=== PATIENT | female | born 1980 | race Caucasian/White ===

== ENCOUNTER → 2016-08-24 | Outpatient (CLI) | payer MEDICAID ==
[2016-01-25 11:53] VITALS: BP 168/90
[2016-08-24 17:46] LABS: BASOPHILS # (AUTO) 0.1 X10^3/uL (0.0-0.1); BASOPHILS % (AUTO) 1.1 % (0.2-1.0); EOSINOPHILS # (AUTO) 0.4 x10^3/uL (0.0-0.2); EOSINOPHILS % (AUTO) 5.5 % (0.9-2.9); HEMATOCRIT 41.8 % (36.0-47.0); HEMOGLOBIN 14.7 g/dL (12.0-16.0); LYMPHOCYTES # (AUTO) 2.5 X10^3/uL (1.3-2.9); LYMPHOCYTES % (AUTO) 38.4 % (21.0-51.0); MEAN CORPUSCULAR HEMOGLOBIN 31.1 pg (27.0-34.0); MEAN CORPUSCULAR HGB CONC 35.1 g/dL (33.0-35.0); MEAN CORPUSCULAR VOLUME 88.7 fL (80.0-100.0); MEAN PLATELET VOLUME 8.6 fL (7.4-11.0); MONOCYTES # (AUTO) 0.4 x10^3/uL (0.3-0.8); MONOCYTES % (AUTO) 6.1 % (0.0-13.0); NEUTROPHILS # (AUTO) 3.2 x10^3/uL (2.2-4.8); NEUTROPHILS % (AUTO) 48.9 % (42.0-75.0); PLATELET COUNT 209 X10^3/uL (150.0-450.0); RED BLOOD COUNT 4.72 X10^6/uL (3.5-5.4); RED CELL DISTRIBUTION WIDTH 12.4 % (11.6-16.5); WHITE BLOOD COUNT 6.5 X10^3/uL (3.6-10.0)
[2016-08-24 17:47] LABS: BILIRUBIN,URINE NEGATIVE (NEGATIVE); BLOOD/HEMOGLOBIN,URINE 1+ (NEGATIVE); GLUCOSE, URINE 1+ (NEGATIVE); KETONES,URINE 1+ (NEGATIVE); LEUKOCYTE ESTERASE ,URINE 1+ (NEGATIVE); NITRITES,URINE NEGATIVE (NEGATIVE); PROTEIN,URINE 2+ (NEGATIVE); UROBILINOGEN,URINE 1+ (NORMAL)
[2016-08-24 18:00] LABS: AMORPHOUS SEDIMENT,UR 1+ /HPF (NEGATIVE); APPEARANCE,URINE HAZY (CLEAR); BACTERIA,URINE 1+ /HPF (NEGATIVE); COLOR,URINE YELLOW (YELLOW); MUCUS,URINE MODERATE /HPF (NEGATIVE); SQUAMOUS EPITHELIAL CELL,UR NUMEROUS /HPF (NEGATIVE)
[2016-08-24 18:10] LABS: ALANINE AMINOTRANSFERASE 16 Units/L (12-78); ALBUMIN 3.7 g/dL (3.4-5.0); ALKALINE PHOSPHATASE 76 Units/L (46-116); ASPARTATE AMINO TRANSFERASE 16 Units/L (15-37); BLOOD UREA NITROGEN 12 mg/dL (7-18); CARBON DIOXIDE 30.1 mmol/L (21-32); CHLORIDE 104 mmol/L (98-107); CREATININE 0.84 mg/dL (0.55-1.02); GLUCOSE 96 mg/dL (65-99); SODIUM 141 mmol/L (136-145); TOTAL PROTEIN 7.4 g/dL (6.4-8.2); eGFR BLACK RACES > 60 (>60); eGFR NON BLACK RACES > 60 (>60)
== END ==
LOC: LAB 17:22
PROVIDERS: ATTEND Obstetrics & Gynecology Obstetrics
DX: E86.1 Hypovolemia (principal); R30.0 Dysuria; R35.0 Frequency of micturition
CPT/HCPCS: 36415; 80053; 81001; 85025; 87086

== ENCOUNTER 2017-01-03 14:32 | Emergency (ER) | payer OTHER ==
[2017-01-03 14:56] VITALS: BMI 23.0
[2017-01-03 15:35] LABS: BASOPHILS # (AUTO) 0.1 X10^3/uL (0.0-0.1); BASOPHILS % (AUTO) 1.6 % (0.2-1.0); EOSINOPHILS # (AUTO) 0.3 x10^3/uL (0.0-0.2); EOSINOPHILS % (AUTO) 4.4 % (0.9-2.9); HEMATOCRIT 42.5 % (36.0-47.0); HEMOGLOBIN 14.7 g/dL (12.0-16.0); LYMPHOCYTES # (AUTO) 1.7 X10^3/uL (1.3-2.9); MEAN CORPUSCULAR HEMOGLOBIN 30.7 pg (27.0-34.0); MEAN CORPUSCULAR HGB CONC 34.6 g/dL (33.0-35.0); MEAN CORPUSCULAR VOLUME 88.7 fL (80.0-100.0); MEAN PLATELET VOLUME 8.2 fL (7.4-11.0); MONOCYTES # (AUTO) 0.4 x10^3/uL (0.3-0.8); MONOCYTES % (AUTO) 5.7 % (0.0-13.0); NEUTROPHILS # (AUTO) 3.8 x10^3/uL (2.2-4.8); NEUTROPHILS % (AUTO) 61.3 % (42.0-75.0); PLATELET COUNT 218 X10^3/uL (150.0-450.0); RED CELL DISTRIBUTION WIDTH 12.7 % (11.6-16.5); WHITE BLOOD COUNT 6.3 X10^3/uL (3.6-10.0)
[2017-01-03 15:47] LABS: ALANINE AMINOTRANSFERASE 12 Units/L (12-78); ALBUMIN 3.4 g/dL (3.4-5.0); ALKALINE PHOSPHATASE 70 Units/L (46-116); ASPARTATE AMINO TRANSFERASE 13 Units/L (15-37); BLOOD UREA NITROGEN 8 mg/dL (7-18); CALCIUM 8.7 mg/dL (8.5-10.1); CARBON DIOXIDE 31.8 mmol/L (21-32); CHLORIDE 105 mmol/L (98-107); CREATININE 0.75 mg/dL (0.55-1.02); SODIUM 143 mmol/L (136-145); TOTAL PROTEIN 6.7 g/dL (6.4-8.2); eGFR BLACK RACES > 60 (>60); eGFR NON BLACK RACES > 60 (>60)
[2017-01-03 16:51] LABS: BILIRUBIN,URINE NEGATIVE (NEGATIVE); BLOOD/HEMOGLOBIN,URINE 5+ (NEGATIVE); GLUCOSE, URINE NEGATIVE (NEGATIVE); KETONES,URINE NEGATIVE (NEGATIVE); LEUKOCYTE ESTERASE ,URINE 1+ (NEGATIVE); NITRITES,URINE NEGATIVE (NEGATIVE); PROTEIN,URINE 2+ (NEGATIVE); UROBILINOGEN,URINE NORMAL (NORMAL)
[2017-01-03 17:12] LABS: APPEARANCE,URINE CLEAR (CLEAR); BACTERIA,URINE TRACE /HPF (NEGATIVE); COLOR,URINE YELLOW (YELLOW); SQUAMOUS EPITHELIAL CELL,UR FEW /HPF (NEGATIVE)
--- NOTE | 2017-01-03 17:20 | RAD ---
HISTORY: Indigestion, diabetes Study: Chest one view Comparison: 11/17/2015 Findings: The trachea is midline. The cardiac silhouette is unremarkable. The lungs are clear without focal i nfiltrate or effusion. The bony thorax is unremarkable. IMPRESSION: 1. No acute cardiopulmonary disease. Reported By:
[2017-01-03] MEDS ORDERED: ROMAZICON INJ 0.5 MG IVP ONE (18:02)
[2017-01-03] MEDS ORDERED: ROMAZICON INJ 0.5 MG ONE (18:16)
--- NOTE | 2017-01-03 18:19 | DR.GENAD ---
HPI - PCP Primary Care Physician: hernandez - Complaint/Symptoms Chief Complaint Doctors Comments: Patient admits to being on drugs for extended period of time. She states that she was on suboxone but is now using her medication. She is presently using her suboxone and she states that both are using cocaine,methamphetamine and benzoids. She has been a user for years but can not remember how long. She states that she has been trying to keep her drug use from her children. She would like for them to stay with her mother because she and her are drug users. Chief Complaint:: EMS stated "Family called stating patient was having a seizure." Upon EMS arrival patient noted to be unresponsive. Patient is alert and oriented to self and place. Stating "What happened." Patient admits to taking possibly 3 to 5 pills. Self Treatment fo Chief Complaint: Patient denies being homicidal or suicidal - Source History Provided: Patient, EMS - Timing Onset of Chief Complaint: 01/03/17 PMH - PMH Past Medical History: Yes Past Medical History: Anxiety, Depression, Diabetes, Dyslipidemia, Hypertension Past Surgical History: Yes Surgical History: - Family History History of Family Medical Conditions: Yes Family Medical History: Diabetes Mellitus, Cancer, Hypertension - Social History Does patient currently use any type of tobacco product: Yes Have you used tobacco products in the last 12 months: Yes Type of Tobacco Use: Cigarettes Do you use any recreational Drugs:: No Lives With: Family Lives Where: Home - infectious screening In the last 2 months have you had wt loss of >10#?: NO Have you had fever, night sweats or hemotysis?: No Have you traveled outside the country in the last 6 months?: No Isolation: Standard ROS - Review of Systems Eyes: No Symptoms Reported ENTM: No Symptoms Reported Respiratoy: No Symptoms Reported Cardiovascular: No Symptoms Reported Gastrointestinal/Abdominal: No Symptoms Reported Genitourinary: No Symptoms Reported Neurological: No Symptoms Reported Musculoskeletal: No Symptoms Reported Integumentary: No Symptoms Reported Hematologic/Lymphatic: No Symptoms Reported Endocrine: No Symptoms Reported Psychiatric: No Symptoms Reported All Other Systems: Reviewed and Negative PE - Vital Signs Vitals: Temperature 97.4 F Pulse Rate 91 Respiratory Rate 14 Blood Pressure [Right Arm] 168/90 Blood Pressure [Left Arm] 142/99 Blood Pressure 156/102 O2 Sat by Pulse Oximetry 100 - General General Appearance: Lethargic - Head Head Exam: Normal Inspection - Eyes Eye exam: Normal Appearance - ENT ENT Exam: Normal Exam External Ear Exam: Normal External Inspection TM/Canal Exam: Bilateral Normal Nose Exam: Normal Nose Exam Mouth Exam: Normal Inspection Throat Exam: Normal Inspection - Neck Neck Exam: Normal Inspection - Chest Chest Inspection: Normal Inspection - Respiratory Respiratory Exam: Normal Lung Sounds Bilat Respiratory Exam: Bilateral Clear to Auscultation - Cardiovascular Cardiovascular Exam: Regular Rate, Normal Rhythm - Abdominal Exam Abdominal Exam: Normal Inspection Abdominal Tenderness: negative: RUQ, RLQ, LUQ, LLQ, Epigastrium, Suprapubic, Diffuse, Mild, Moderate, Severe, Other - Extremities Extremities Exam: Normal Inspection, Full ROM - Back Back Exam: Normal Inspection - Neurologic Neurological Exam: Alert, Oriented X3, CN II-XII Intact - Psychiatric Psychiatric Exam: Normal Affect - Skin Skin Exam: Warm, Dry Course - Reevaluation 1st: Improved ROR - Labs Reviewed Laboratory Results Reviewed?: Yes (UDS: cocaine,benzodiazepine,meth) Result Diagrams: 01/03/17 15:28 01/03/17 15:28 Laboratory: WBC 6.3 X10^3/uL (3.6-10.0) 01/03/17 15:28 RBC 4.80 X10^6/uL (3.5-5.4) 01/03/17 15:28 Hgb 14.7 g/dL (12.0-16.0) 01/03/17 15:28 Hct 42.5 % (36.0-47.0) 01/03/17 15:28 MCV 88.7 fL (80.0-100.0) 01/03/17 15:28 MCH 30.7 pg (27.0-34.0) 01/03/17 15:28 MCHC 34.6 g/dL (33.0-35.0) 01/03/17 15:28 RDW 12.7 % (11.6-16.5) 01/03/17 15:28 Plt Count 218 X10^3/uL (150.0-450.0) 01/03/17 15:28 MPV 8.2 fL (7.4-11.0) 01/03/17 15:28 Neut % 61.3 % (42.0-75.0) 01/03/17 15:28 Lymph % 27.0 % (21.0-51.0) 01/03/17 15:28 Sunflower % 5.7 % (0.0-13.0) 01/03/17 15:28 Eos % 4.4 % (0.9-2.9) H 01/03/17 15:28 Baso % 1.6 % (0.2-1.0) H 01/03/17 15:28 Neut # 3.8 x10^3/uL (2.2-4.8) 01/03/17 15:28 Lymph # 1.7 X10^3/uL (1.3-2.9) 01/03/17 15:28 Sunflower # 0.4 x10^3/uL (0.3-0.8) 01/03/17 15:28 Eos # 0.3 x10^3/uL (0.0-0.2) H 01/03/17 15:28 Baso # 0.1 X10^3/uL (0.0-0.1) 01/03/17 15:28 Absolute Nucleated RBC 0.0 /100WBC 01/03/17 15:28 Sodium 143 mmol/L (136-145) 01/03/17 15:28 Corrected Sodium TNP 01/03/17 15:28 Potassium 4.1 mmol/L (3.5-5.1) 01/03/17 15:28 Chloride 105 mmol/L (98-107) 01/03/17 15:28 Carbon Dioxide 31.8 mmol/L (21-32) 01/03/17 15:28 BUN 8 mg/dL (7-18) 01/03/17 15:28 Creatinine 0.75 mg/dL (0.55-1.02) 01/03/17 15:28 Est GFR (MDRD) Af Amer > 60 (>60) 01/03/17 15:28 Est GFR (MDRD) Non-Af > 60 (>60) 01/03/17 15:28 Glucose 101 mg/dL (65-99) H 01/03/17 15:28 POC Glucose (mg/dL) 114 mg/dL (65-99) H 01/03/17 14:51 Calcium 8.7 mg/dL (8.5-10.1) 01/03/17 15:28 Corrected Calcium TNP 01/03/17 15:28 Total Bilirubin 0.30 mg/dL (0.2-1.0) 01/03/17 15:28 AST 13 Units/L (15-37) L 01/03/17 15:28 ALT 12 Units/L (12-78) 01/03/17 15:28 Alkaline Phosphatase 70 Units/L (46-116) 01/03/17 15:28 Total Protein 6.7 g/dL (6.4-8.2) 01/03/17 15:28 Albumin 3.4 g/dL (3.4-5.0) 01/03/17 15:28 Globulin 3.3 g/dL (2.5-4.5) 01/03/17 15:28 Albumin/Globulin Ratio 1.0 Ratio (1.1-2.1) L 01/03/17 15:28 Specimen Type Random urine 01/03/17 16:31 Urine Color Yellow (YELLOW) 01/03/17 16:31 Urine Appearance Clear (CLEAR) 01/03/17 16:31 Urine pH 6.0 (5.0 - 8.0) 01/03/17 16:31 Ur Specific [place] 1.015 (1.000-1.030) 01/03/17 16:31 Urine Protein 2+ (NEGATIVE) 01/03/17 16:31 Urine Glucose (UA) Negative (NEGATIVE) 01/03/17 16:31 Urine Ketones Negative (NEGATIVE) 01/03/17 16:31 Urine Occult Blood 5+ (NEGATIVE) 01/03/17 16:31 Urine Nitrite Negative (NEGATIVE) 01/03/17 16:31 Urine Bilirubin Negative (NEGATIVE) 01/03/17 16:31 Urine Urobilinogen Normal (NORMAL) 01/03/17 16:31 Ur Leukocyte Esterase 1+ (NEGATIVE) 01/03/17 16:31 Urine RBC 6-10 /HPF (NEGATIVE) 01/03/17 16:31 Urine WBC 0-5 /HPF (NEGATIVE) 01/03/17 16:31 Ur Squamous Epith Cells Few /HPF (NEGATIVE) 01/03/17 16:31 Urine Bacteria Trace /HPF (NEGATIVE) 01/03/17 16:31 Ur Culture Indicated? No/not indicated 01/03/17 16:31 Urine Opiates Screen Negative (NEG=<300) 01/03/17 16:31 Urine Methadone Screen Negative (NEG=<300) 01/03/17 16:31 Ur Barbiturates Screen Negative (NEG=<200) 01/03/17 16:31 Ur Phencyclidine Scrn Negative (NEG=<25) 18 16:31 Ur Amphetamines Screen Positive (NEG=<1000) A 01/03/17 16:31 U Benzodiazepines Scrn Positive (NEG=<200) A 01/03/17 16:31 Urine Cocaine Screen Positive (NEG=<300) A 01/03/17 16:31 U Marijuana (THC) Screen Negative (NEG=<50) 01/03/17 16:31 - Diagnosis Discharge Problem: Illicit drug use - Discharge Plan Condition: Stable - Follow ups/Referrals Follow ups/Referrals: ADIA HERNANDEZ [Primary Care Provider] - 3 days - Instructions
[2017-01-03 19:16] VITALS: BP 140/79
[2017-01-03] MEDS ORDERED: TORADOL 60 MG VIAL IM ONE (19:23)
[2017-01-03] MEDS ORDERED: TORADOL 60 MG VIAL ONE (19:24)
== END 2017-01-03 19:42 | disposition home or self-care (01) ==
LOC: ER 14:55
DX: F14.90 Cocaine use, unspecified, uncomplicated (principal)
CPT/HCPCS: 36415; 71010; 80053; 80307; 81001; 85025; 93005; 93010; 96372; 96374; 99283; A4222; G0434; J1885; J3490

== ENCOUNTER 2017-02-04 09:41 | Emergency (ER) | payer OTHER ==
[2017-02-04] MEDS ORDERED: NS 1000 ML 1,000 ML ONE ×2 (09:46→11:01)
[2017-02-04 09:48] VITALS: BMI 26.5
[2017-02-04] MEDS ORDERED: NS 1000 ML 1,000 ML IV ONE (09:49)
[2017-02-04] MEDS ORDERED: ZOFRAN INJ 4 MG VIAL IVP ONE (10:01)
[2017-02-04] MEDS ORDERED: TORADOL 30 MG VIAL IVP ONE (10:01)
[2017-02-04] MEDS ORDERED: ZOFRAN INJ 4 MG VIAL ONE (10:02)
[2017-02-04] MEDS ORDERED: TORADOL 30 MG VIAL ONE (10:03)
[2017-02-04] MEDS ORDERED: PROTONIX INJ 40 MG VIAL IVP ONE (10:03)
--- NOTE | 2017-02-04 10:04 | DR.GENAD ---
HPI - PCP Primary Care Physician: ambrosio moody - Complaint/Symptoms Chief Complaint Doctors Comments: Patient admits to nausea and vomiting onset last night. She states that the pain is sharp, 10/10 in severity,eating makes it worse. Chief Complaint:: PT C/O EPIGASTRIC PAIN WITH N/V/D. PT STATES SHE HAS NOT BEEN ABLE TO KEEP ANYTHING DOWN. - Source History Provided: Patient - Mode of Arrival Mode of Arrival: Ambulatory - Timing Onset of Chief Complaint: 02/02/17 PMH - PMH Past Medical History: Yes Past Medical History: Anxiety, Depression, Diabetes, Dyslipidemia, Hypertension Past Surgical History: Yes Surgical History: - Family History History of Family Medical Conditions: Yes Family Medical History: Diabetes Mellitus, Cancer, Hypertension - Social History Does patient currently use any type of tobacco product: Yes Have you used tobacco products in the last 12 months: Yes Type of Tobacco Use: Cigarettes Does any household member use tobacco: Yes Alcohol Use: None Do you use any recreational Drugs:: No Lives With: Family Lives Where: Home - infectious screening In the last 2 months have you had wt loss of >10#?: NO Have you had fever, night sweats or hemotysis?: No Have you traveled outside the country in the last 6 months?: No Isolation: Standard ROS - Review of Systems Constitutional: See HPI Eyes: No Symptoms Reported, See HPI ENTM: No Symptoms Reported Respiratoy: No Symptoms Reported Cardiovascular: No Symptoms Reported Gastrointestinal/Abdominal: Abdominal Pain, Diarrhea, Nausea, Vomiting Genitourinary: No Symptoms Reported Neurological: No Symptoms Reported Musculoskeletal: No Symptoms Reported Integumentary: No Symptoms Reported Hematologic/Lymphatic: No Symptoms Reported Endocrine: No Symptoms Reported Psychiatric: No Symptoms Reported All Other Systems: Reviewed and Negative PE - Vital Signs Vitals: Temperature 97.3 F Pulse Rate [Right Brachial] 65 Pulse Rate 60 Respiratory Rate 20 Blood Pressure [Right Arm] 186/106 Blood Pressure [Left Arm] 179/112 Blood Pressure 175/119 O2 Sat by Pulse Oximetry 100 - General Limitations: No Limitations General Appearance: Alert - Head Head Exam: Normal Inspection, Atraumatic - Eyes Eye exam: Normal Appearance, PERRL, EOMI - ENT ENT Exam: Normal Exam External Ear Exam: Normal External Inspection TM/Canal Exam: Bilateral Normal Nose Exam: Normal Nose Exam Mouth Exam: Normal Inspection Throat Exam: Normal Inspection - Neck Neck Exam: Normal Inspection, Full ROM - Chest Chest Inspection: Normal Inspection - Respiratory Respiratory Exam: Normal Lung Sounds Bilat, Accessory Muscle Use Respiratory Exam: Bilateral Clear to Auscultation - Cardiovascular Cardiovascular Exam: Regular Rate, Normal Rhythm - Abdominal Exam Abdominal Exam: Normal Inspection, Normal Bowel Sounds Abdominal Tenderness: Epigastrium, Suprapubic - Extremities Extremities Exam: Normal Inspection, Full ROM - Back Back Exam: Normal Inspection, Full ROM - Neurologic Neurological Exam: Alert, Oriented X3, CN II-XII Intact - Psychiatric Psychiatric Exam: Normal Affect - Skin Skin Exam: Warm, Dry, Intact Course - Reevaluation 1st: Improved - Education/Counseling Education/Counseling: Patient Educated On: Treatment, Diagnosis, Prognosis, Needs for Follow Up ROR - Labs Reviewed Result Diagrams: 02/04/17 09:55 02/04/17 09:55 Laboratory: WBC 11.1 X10^3/uL (3.6-10.0) H 02/04/17 09:55 RBC 4.87 X10^6/uL (3.5-5.4) 02/04/17 09:55 Hgb 14.8 g/dL (12.0-16.0) 02/04/17 09:55 Hct 42.2 % (36.0-47.0) 02/04/17 09:55 MCV 86.7 fL (80.0-100.0) 02/04/17 09:55 MCH 30.4 pg (27.0-34.0) 02/04/17 09:55 MCHC 35.0 g/dL (33.0-35.0) 02/04/17 09:55 RDW 12.5 % (11.6-16.5) 02/04/17 09:55 Plt Count 282 X10^3/uL (150.0-450.0) 02/04/17 09:55 MPV 8.2 fL (7.4-11.0) 02/04/17 09:55 Neut % 82.0 % (42.0-75.0) H 02/04/17 09:55 Lymph % 14.0 % (21.0-51.0) L 02/04/17 09:55 [place] % 3.1 % (0.0-13.0) 02/04/17 09:55 Eos % 0.1 % (0.9-2.9) L 02/04/17 09:55 Baso % 0.8 % (0.2-1.0) 02/04/17 09:55 Neut # 9.1 x10^3/uL (2.2-4.8) H 02/04/17 09:55 Lymph # 1.6 X10^3/uL (1.3-2.9) 02/04/17 09:55 [place] # 0.3 x10^3/uL (0.3-0.8) 02/04/17 09:55 Eos # 0.0 x10^3/uL (0.0-0.2) 02/04/17 09:55 Baso # 0.1 X10^3/uL (0.0-0.1) 02/04/17 09:55 Absolute Nucleated RBC 0.1 /100WBC 02/04/17 09:55 Sodium 141 mmol/L (136-145) 02/04/17 09:55 Corrected Sodium 143 mmol/L (136-145) 02/04/17 09:55 Potassium 3.5 mmol/L (3.5-5.1) 02/04/17 09:55 Chloride 103 mmol/L (98-107) 02/04/17 09:55 Carbon Dioxide 27.8 mmol/L (21-32) 02/04/17 09:55 BUN 15 mg/dL (7-18) 02/04/17 09:55 Creatinine 0.88 mg/dL (0.55-1.02) 02/04/17 09:55 Est GFR (MDRD) Af Amer > 60 (>60) 02/04/17 09:55 Est GFR (MDRD) Non-Af > 60 (>60) 02/04/17 09:55 Glucose 181 mg/dL (65-99) H 02/04/17 09:55 POC Glucose (mg/dL) 184 mg/dL (65-99) H 02/04/17 10:02 Hemoglobin A1c 7.8 % (4.5-6.2) H 02/04/17 09:55 Calcium 9.8 mg/dL (8.5-10.1) 02/04/17 09:55 Corrected Calcium TNP 02/04/17 09:55 Total Bilirubin 0.50 mg/dL (0.2-1.0) 02/04/17 09:55 AST 18 Units/L (15-37) 02/04/17 09:55 ALT 20 Units/L (12-78) 02/04/17 09:55 Alkaline Phosphatase 90 Units/L (46-116) 02/04/17 09:55 C-Reactive Protein 1.10 mg/L (0-3.0) 02/04/17 09:55 Total Protein 8.0 g/dL (6.4-8.2) 02/04/17 09:55 Albumin 4.3 g/dL (3.4-5.0) 02/04/17 09:55 Globulin 3.7 g/dL (2.5-4.5) 02/04/17 09:55 Albumin/Globulin Ratio 1.2 Ratio (1.1-2.1) 02/04/17 09:55 Amylase 32 Units/L (25-115) 02/04/17 09:55 Lipase 51 Units/L (73-393) L 02/04/17 09:55 H. pylori IgG Antibody Negative (NEGATIVE) 02/04/17 09:55 Influenza Type A (PCR) Negative (NEGATIVE) 02/04/17 10:12 Influenza Type B (PCR) Negative (NEGATIVE) 02/04/17 10:12 Streptococcus Screen Negative (NEGATIVE) 02/04/17 10:12 - Diagnosis Discharge Problem: Gastroenteritis - Discharge Plan Condition: Stable - Follow ups/Referrals Follow ups/Referrals: [facility],None [Primary Care Provider] - 3 days - Instructions Instructions: Smoking Cessation, Tips for Success, [id number]
[2017-02-04] MEDS ORDERED: PROTONIX INJ 40 MG VIAL ONE (10:05)
[2017-02-04 10:13] LABS: BASOPHILS # (AUTO) 0.1 X10^3/uL (0.0-0.1); BASOPHILS % (AUTO) 0.8 % (0.2-1.0); EOSINOPHILS % (AUTO) 0.1 % (0.9-2.9); HEMATOCRIT 42.2 % (36.0-47.0); HEMOGLOBIN 14.8 g/dL (12.0-16.0); LYMPHOCYTES # (AUTO) 1.6 X10^3/uL (1.3-2.9); MEAN CORPUSCULAR HEMOGLOBIN 30.4 pg (27.0-34.0); MEAN CORPUSCULAR VOLUME 86.7 fL (80.0-100.0); MEAN PLATELET VOLUME 8.2 fL (7.4-11.0); MONOCYTES # (AUTO) 0.3 x10^3/uL (0.3-0.8); MONOCYTES % (AUTO) 3.1 % (0.0-13.0); NEUTROPHILS # (AUTO) 9.1 x10^3/uL (2.2-4.8); PLATELET COUNT 282 X10^3/uL (150.0-450.0); RED BLOOD COUNT 4.87 X10^6/uL (3.5-5.4); RED CELL DISTRIBUTION WIDTH 12.5 % (11.6-16.5); WHITE BLOOD COUNT 11.1 X10^3/uL (3.6-10.0)
[2017-02-04 10:26] LABS: ALANINE AMINOTRANSFERASE 20 Units/L (12-78); ALBUMIN 4.3 g/dL (3.4-5.0); ALKALINE PHOSPHATASE 90 Units/L (46-116); AMYLASE 32 Units/L (25-115); ASPARTATE AMINO TRANSFERASE 18 Units/L (15-37); BLOOD UREA NITROGEN 15 mg/dL (7-18); CALCIUM 9.8 mg/dL (8.5-10.1); CARBON DIOXIDE 27.8 mmol/L (21-32); CHLORIDE 103 mmol/L (98-107); COR NA(FOR HYPERGLY) 143 mmol/L (136-145); CREATININE 0.88 mg/dL (0.55-1.02); LIPASE 51 Units/L (73-393); SODIUM 141 mmol/L (136-145); eGFR BLACK RACES > 60 (>60); eGFR NON BLACK RACES > 60 (>60)
[2017-02-04 10:32] LABS: HEMOGLOBIN A1C 7.8 % (4.5-6.2)
[2017-02-04] MEDS ORDERED: CATAPRES TAB 0.1 MG PO ONE ×2 (10:37→11:46)
[2017-02-04] MEDS ORDERED: CATAPRES TAB 0.1 MG ONE ×2 (10:38→11:50)
[2017-02-04] MEDS ORDERED: MORPHINE SULFATE INJ 2 MG INJ IVP ONE (10:40)
[2017-02-04] MEDS ORDERED: PHENERGAN INJ 25 MG IV ONE (10:40)
[2017-02-04] MEDS ORDERED: PHENERGAN INJ 25 MG ONE (10:41)
[2017-02-04] MEDS ORDERED: MORPHINE SULFATE INJ 2 MG INJ ONE (10:42)
[2017-02-04] MEDS ORDERED: NS 1000 ML 1,000 ML IV SCH (11:00)
[2017-02-04] MEDS ORDERED: BENTYL I.M. INJ 10 MG IM ONE ×2 (11:04)
[2017-02-04 12:41] VITALS: BP 169/104
== END 2017-02-04 12:49 | disposition home or self-care (01) ==
LOC: ER 09:41
DX: K52.89 Other specified noninfective gastroenteritis and colitis (principal)
CPT/HCPCS: 36415; 80053; 82150; 83036; 83690; 85025; 86140; 86677; 87070; 87502; 87880; 96367; 96372; 96374; 96375; 99282; 99283; A4222; C9113; J0500; J1885; J2270; J2405; J2550

== ENCOUNTER → 2017-04-05 | Outpatient (CLI) | payer OTHER ==
[2017-04-05 19:17] LABS: BASOPHILS # (AUTO) 0.1 X10^3/uL (0.0-0.1); BASOPHILS % (AUTO) 0.6 % (0.2-1.0); EOSINOPHILS # (AUTO) 0.5 x10^3/uL (0.0-0.2); EOSINOPHILS % (AUTO) 5.8 % (0.9-2.9); HEMATOCRIT 41.8 % (36.0-47.0); HEMOGLOBIN 14.5 g/dL (12.0-16.0); LYMPHOCYTES # (AUTO) 2.9 X10^3/uL (1.3-2.9); LYMPHOCYTES % (AUTO) 31.7 % (21.0-51.0); MEAN CORPUSCULAR HEMOGLOBIN 30.6 pg (27.0-34.0); MEAN CORPUSCULAR HGB CONC 34.6 g/dL (33.0-35.0); MEAN CORPUSCULAR VOLUME 88.4 fL (80.0-100.0); MEAN PLATELET VOLUME 8.9 fL (7.4-11.0); MONOCYTES # (AUTO) 0.4 x10^3/uL (0.3-0.8); MONOCYTES % (AUTO) 4.8 % (0.0-13.0); NEUTROPHILS # (AUTO) 5.2 x10^3/uL (2.2-4.8); NEUTROPHILS % (AUTO) 57.1 % (42.0-75.0); PLATELET COUNT 355 X10^3/uL (150.0-450.0); RED BLOOD COUNT 4.73 X10^6/uL (3.5-5.4); WHITE BLOOD COUNT 9.2 X10^3/uL (3.6-10.0)
[2017-04-05 19:21] LABS: BLOOD UREA NITROGEN 10 mg/dL (7-18); CALCIUM 9.1 mg/dL (8.5-10.1); CARBON DIOXIDE 35.4 mmol/L (21-32); CHLORIDE 102 mmol/L (98-107); COR NA(FOR HYPERGLY) 141 mmol/L (136-145); CREATININE 0.85 mg/dL (0.55-1.02); SODIUM 140 mmol/L (136-145); eGFR BLACK RACES > 60 (>60); eGFR NON BLACK RACES > 60 (>60)
[2017-04-05 19:26] LABS: HEMOGLOBIN A1C 8.8 % (4.5-6.2)
== END ==
LOC: LAB 19:09
PROVIDERS: ATTEND Psychiatry & Neurology Neurology
DX: E10.69 Type 1 diabetes mellitus with other specified complication (principal)
CPT/HCPCS: 36415; 80048; 83036; 85025

== ENCOUNTER → 2017-07-10 | Outpatient (CLI) | payer OTHER ==
--- NOTE | 2017-07-10 15:22 | RAD ---
Exam: Lumbar spine, AP and lateral views History: 37-year-old female with chronic lower back pain. Comparison: None Findings: Narrowing of the L4-5 and L5-S1 disc spaces is seen. The other lumbar disc spaces are maintained. No acute bony abnormality is seen on this exam. Impression: Mild degenerative changes are seen in the lower lumbar spine. Reported By:
== END ==
LOC: RAD 14:42
PROVIDERS: ATTEND Psychiatry & Neurology Neurology
DX: M54.42 Lumbago with sciatica, left side (principal)
CPT/HCPCS: 72100

== ENCOUNTER → 2017-07-18 | Outpatient (CLI) | payer OTHER ==
--- NOTE | 2017-07-18 12:50 | MRI ---
STUDY: MRI OF THE LUMBAR SPINE HISTORY: Low back pain radiates to left leg. Comparison: Lumbar spine radiographs from July 10, 2017. Chest Technique: Multiplanar multi-sequence MRI of the lumbar spine was performed. Sagittal T1, sagittal T 2, and STIR images, axial T1, and axial T2 images were obtained. Findings: Sagittal images: Vertebral body heights and alignment are within normal limits. Marrow signal is age-appropriate. The re is degenerative endplate change identified, with Modic type 1 change at the opposing endplates of L5/S1. Degenerative disc disease is noted at L5/S1. The conus medullaris is normal in appearance terminating at the level of L2. Axial images: T12 -- L1: Normal. L1 -- L2: Normal. L2 -- L3: There is a shallow disc bulge, slightly asymmetric to the right. There is mild bilateral fa cet arthropathy and ligamentum flavum infolding. The central canal and neural foramina are adequate. L3 -- L4: There is a shallow disc bulge. There is bilateral facet arthropathy and ligamentum flavum i nfolding. The central canal and neural foramina are adequate. L4 -- L5: There is a central disc bulge, bilateral facet arthropathy and ligamentum flavum infolding. The central canal is adequate. There is mild right neural foraminal stenosis. Left neural foramen is adequate. L5 -- S1: There is a central disc bulge, bilateral facet arthropathy and mild ligamentum flavum infol ding. The central canal is adequate. There is mild bilateral neural foraminal stenosis. IMPRESSION: 1. Mild multilevel lumbar spondylosis, most severe at L5/S1. 2. No significant central canal stenosis. 3. Mild multilevel neural foraminal stenosis. Please see above for detail. Reported By:
== END | disposition home or self-care (01) | DRG 552 ==
LOC: RAD 11:15
PROVIDERS: ATTEND Nurse Practitioner Family
DX: M54.42 Lumbago with sciatica, left side (principal); M47.897 Other spondylosis, lumbosacral region; M48.07 Spinal stenosis, lumbosacral region
CPT/HCPCS: 72148

== ENCOUNTER 2019-05-19 00:11 | Observation (INO) ==
[2019-05-19 00:49] LABS: BASOPHILS # (AUTO) 0.1 X10^3/uL (0.0-0.1); BASOPHILS % (AUTO) 1.5 % (0.2-1.0); EOSINOPHILS # (AUTO) 0.2 x10^3/uL (0.0-0.2); EOSINOPHILS % (AUTO) 2.6 % (0.9-2.9); HEMATOCRIT 40.4 % (36.0-47.0); HEMOGLOBIN 13.9 g/dL (12.0-16.0); LYMPHOCYTES # (AUTO) 3.5 X10^3/uL (1.3-2.9); LYMPHOCYTES % (AUTO) 36.7 % (21.0-51.0); MEAN CORPUSCULAR HEMOGLOBIN 31.6 pg (27.0-34.0); MEAN CORPUSCULAR HGB CONC 34.5 g/dL (33.0-35.0); MEAN CORPUSCULAR VOLUME 91.7 fL (80.0-100.0); MEAN PLATELET VOLUME 8.7 fL (7.4-11.0); MONOCYTES # (AUTO) 0.8 x10^3/uL (0.3-0.8); NEUTROPHILS # (AUTO) 4.9 x10^3/uL (2.2-4.8); NEUTROPHILS % (AUTO) 51.2 % (42.0-75.0); PLATELET COUNT 259 X10^3/uL (150.0-450.0); WHITE BLOOD COUNT 9.5 X10^3/uL (3.6-10.0)
[2019-05-19 01:11] LABS: BLOOD UREA NITROGEN 30 mg/dL (7-18); CALCIUM 9.3 mg/dL (8.5-10.1); CARBON DIOXIDE 28.7 mmol/L (21-32); CHLORIDE 96 mmol/L (98-107); COR NA(FOR HYPERGLY) 139 mmol/L (136-145); CREATININE 1.44 mg/dL (0.55-1.02); SODIUM 131 mmol/L (136-145); TROPONIN I < 0.02 ng/mL (0-1.5); eGFR NON BLACK RACES 43 (>60)
[2019-05-19 01:18] LABS: ALANINE AMINOTRANSFERASE 20 Units/L (12-78); ALBUMIN 3.2 g/dL (3.4-5.0); ALKALINE PHOSPHATASE 100 Units/L (46-116); ASPARTATE AMINO TRANSFERASE 19 Units/L (15-37); COR CA(FOR HYPOALB) 9.9 mg/dL (8.5-10.1); CREATINE KINASE 262 Units/L (26-192); TOTAL PROTEIN 6.8 g/dL (6.4-8.2)
[2019-05-19 01:19] LABS: CKMB % 2.2 % (<4); CREATINE KINASE MB 5.8 ng/mL (0-4.0)
[2019-05-19] MEDS ORDERED: NS 1000 ML 1,000 ML IV ONE ×3 (01:41→08:06)
--- NOTE | 2019-05-19 01:44 | DR.CP ---
HPI Time Seen Time Seen by Provider: 05/19/19 01:39 PCP Primary Care Physician: REE GAONA HPI Comment HPI Comment: PATIENT IS 39YR OLD FEMALE IN ER WITH MID STERNAL CHEST PAIN. SHE WOKE UP FROM SLEEP COUGHING SOB WITH SHARP 10/10 MID STERNAL CHEST PAIN RADIATING TO THE LEFT ARM. PATIENT IF SHE DID NOT COME TO ER SHE MAY . NO FEVER. SHE IS A DIABETIC BUT GLUCOSE IS NOT LOW BUT HIGH. Complaint Chief Complaint Doctor Comments: MID CHEST PAIN. 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 PAIN IS ACCOMPANIED BY SHORTNESS OF BREATH. PT STATES "IM SCARED TO , I FELT LIKE IF I DIDNT GET HERE I WAS GOING TO ". Self Treatment fo Chief Complaint: NONE Reviewed Nurses Notes Review: Yes Source History Provided: Patient Mode of Arrival Mode of Arrival: Ambulatory Timing Onset of Chief Complaint: 05/19/19 Came on: Suddenly Pain: Present Now Duration Duration: Constant Location Location of Chest Pain: Chest (SUB STERNAL CHEST PAIN.) Chest Pain Radiation Location: Left Arm Context Onset: While Asleep Cardiac Risk Factors: Family History, Hyperlipidemia, HTN and Diabetes PE Risk Factors: None History of: None Prehospital Care: None Quality Quality: Sharp Severity Severity: Severe Modifying Factors Worsens: Exertion Associated Signs and Symptoms Associated Signs and Symptoms: Shortness of Breath PMH PMH Past Medical History: Yes Past Medical History: Anxiety, Depression, Diabetes, Dyslipidemia and Hypertension Past Surgical History: Yes Surgical History: Family History History of Family Medical Conditions: Yes Family Medical History: Hypertension Social History Does patient currently use any type of tobacco product: Yes Have you used tobacco products in the last 12 months: Yes Type of Tobacco Use: Cigarettes Does any household member use tobacco: Yes Alcohol Use: None Do you use any recreational Drugs:: No Lives With: Family Lives Where: Home infectious screening In the last 2 months have you had wt loss of >10#?: NO Have you had fever, night sweats or hemotysis?: No Have you traveled outside the country in the last 6 months?: No Isolation: Standard ROS Review of Systems Constitutional: No Symptoms Reported, See HPI, Weakness and Fatigue; negative Fever Eyes: No Symptoms Reported and See HPI; negative Blurred Vision, Photophobia and Diplopia ENTM: No Symptoms Reported and See HPI; negative Ear Pain, Nose Discharge, Nose Congestion and Throat Pain Respiratoy: See HPI and Short of Breath; negative Moist Cough and Wheezing Cardiovascular: See HPI and Chest Pain; negative Edema and Palpitations Gastrointestinal/Abdominal: See HPI and Nausea; negative Abdominal Pain, Diarrhea and Vomiting Genitourinary: No Symptoms Reported and See HPI; negative Dysuria, Frequency and Hematuria Neurological: See HPI and Weakness; negative Headache and Dizziness Musculoskeletal: No Symptoms Reported and See HPI; negative Back Pain and Muscle Pain Integumentary: No Symptoms Reported and See HPI; negative Change in Color, Rash and Juandice Hematologic/Lymphatic: No Symptoms Reported and See HPI; negative Easy Bruising and Swollen Glands Endocrine: No Symptoms Reported and See HPI; negative Increased Thirst and Increased Urine Psychiatric: See HPI, Anxiety and Depression All Other Systems: Reviewed and Negative PE Vitals Vitals: Temperature 98.4 F Pulse Rate 69 Respiratory Rate 19 Blood Pressure [Right Arm] 186/106 Blood Pressure [Left Arm] 169/104 Blood Pressure 88/49 O2 Sat by Pulse Oximetry 97 General Limitations: No Limitations General Appearance: Alert and In No Apparent Distress Head Head Exam: Normal Inspection and Atraumatic Eyes Eye exam: Normal Appearance and PERRL; negative Scleral Icterus and Conjunctival Injection ENT ENT Exam: Normal Exam, Normal Oropharynx, Normal External Ear Exam and TM's Normal Bilaterally Chest Chest Inspection: Normal Inspection and Symmetric Chest Wall Rise; negative Tenderness Respiratory Respiratory Exam: Normal Lung Sounds Bilat and Respiratory Distress; negative Accessory Muscle Use and Chest Wall Tenderness Respiratory Exam: Bilateral: Rhonchi and Lower: Rhonchi Cardiovascular Cardiovascular Exam: Regular Rate, Normal Rhythm and Normal Heart Sounds; negative Systolic Murmur and Diastolic Murmur Pulse: Normal Edema: Normal Abdominal Exam Abdominal Exam: Normal Inspection, Normal Bowel Sounds and Soft; negative Tenderness Extremities Extremities Exam: Normal Inspection and Normal Capillary Refill; negative Tenderness, Edema and Calf Tenderness Back Back Exam: Normal Inspection; negative (R) CVA Tenderness and (L) CVA Tenderness Neurologic Neurological Exam: Alert, Oriented X3 and CN II-XII Intact; negative Motor Sensory Deficit Psychiatric Psychiatric Exam: Normal Affect, Normal Mood and Depressed; negative Suicidal Ideation Skin Skin Exam: Warm, Dry, Intact and Normal Color MDM Differential Diagnosis Differential Diagnosis: Chest Wall Pain, CHF, Costochondritis, Gastritis, Myocardial Infarction, Pericarditis, Pleuritis, Pancreatitis, Pneumonia, Pneumothorax and Pulmonary Embolus COURSE Treatment Treatment: SEE ORDERS. NS 1L IV BOLUS. PATIENT BECAME LESS AROUSABLE WHILE IN ER. SHE BACAME HYPOTENSIVE AND HYPOGLYCEMIC. LATER ADMITED TAKING 8UNITS OF HER REGULAR INSULIN SHE HAD IN HER PURSE. BP SLOWLY RESPONDING TO NS BOLUSES. GLUCOSE DROPPING INTO 40S INTERMITTENTLY. SHE WAS GIVEN BREAKFAST. Consultation Consultation Comments: DISCUSSED PATIENT WITH DR. GANT AND SHE WILL ADMIT PATIENT. Education/Counseling Education/Counseling: Patient Educated On: Diagnosis ROR Labs Reviewed Laboratory Results Reviewed?: Yes Result Diagrams: 05/20/19 04:19 05/20/19 04:19 Laboratory: WBC 9.5 X10^3/uL (3.6-10.0) 05/19/19 00:36 RBC 4.40 X10^6/uL (3.5-5.4) 05/19/19 00:36 Hgb 13.9 g/dL (12.0-16.0) 05/19/19 00:36 Hct 40.4 % (36.0-47.0) 05/19/19 00:36 MCV 91.7 fL (80.0-100.0) 05/19/19 00:36 MCH 31.6 pg (27.0-34.0) 05/19/19 00:36 MCHC 34.5 g/dL (33.0-35.0) 05/19/19 00:36 RDW 13.0 % (11.6-16.5) 05/19/19 00:36 Plt Count 259 X10^3/uL (150.0-450.0) 05/19/19 00:36 MPV 8.7 fL (7.4-11.0) 05/19/19 00:36 Neut % (Auto) 51.2 % (42.0-75.0) 05/19/19 00:36 Lymph % (Auto) 36.7 % (21.0-51.0) 05/19/19 00:36 [place]abella % (Auto) 8.0 % (0.0-13.0) 05/19/19 00:36 Eos % (Auto) 2.6 % (0.9-2.9) 05/19/19 00:36 Baso % (Auto) 1.5 % (0.2-1.0) H 05/19/19 00:36 Neut # (Auto) 4.9 x10^3/uL (2.2-4.8) H 05/19/19 00:36 Lymph # (Auto) 3.5 X10^3/uL (1.3-2.9) H 05/19/19 00:36 [place] # (Auto) 0.8 x10^3/uL (0.3-0.8) 05/19/19 00:36 Eos # (Auto) 0.2 x10^3/uL (0.0-0.2) 05/19/19 00:36 Baso # (Auto) 0.1 X10^3/uL (0.0-0.1) 05/19/19 00:36 Absolute Nucleated RBC 0.0 /100WBC 05/19/19 00:36 Sodium 131 mmol/L (136-145) L 05/19/19 00:36 Corrected Sodium 139 mmol/L (136-145) 05/19/19 00:36 Potassium 4.5 mmol/L (3.5-5.1) 05/19/19 00:36 Chloride 96 mmol/L (98-107) L 05/19/19 00:36 Carbon Dioxide 28.7 mmol/L (21-32) 05/19/19 00:36 BUN 30 mg/dL (7-18) H 05/19/19 00:36 Creatinine 1.44 mg/dL (0.55-1.02) H 05/19/19 00:36 Est GFR (MDRD) Af Amer 52 (>60) L 05/19/19 00:36 Est GFR (MDRD) Non-Af 43 (>60) L 05/19/19 00:36 Glucose 48 mg/dL (65-99) L* 05/19/19 07:07 POC Glucose (mg/dL) 184 mg/dL (65-99) H 05/19/19 08:08 Calcium 9.3 mg/dL (8.5-10.1) 05/19/19 00:36 Corrected Calcium 9.9 mg/dL (8.5-10.1) 05/19/19 00:36 Total Bilirubin 0.30 mg/dL (0.2-1.0) 05/19/19 00:36 AST 19 Units/L (15-37) 05/19/19 00:36 ALT 20 Units/L (12-78) 05/19/19 00:36 Alkaline Phosphatase 100 Units/L (46-116) 05/19/19 00:36 Creatine Kinase 262 Units/L (26-192) H 05/19/19 00:36 CK-MB (CK-2) 5.8 ng/mL (0-4.0) H* 05/19/19 00:36 CK/CKMB % Calc 2.2 % (<4) 05/19/19 00:36 Troponin I < 0.02 ng/mL (0-1.5) 05/19/19 00:36 Total Protein 6.8 g/dL (6.4-8.2) 05/19/19 00:36 Albumin 3.2 g/dL (3.4-5.0) L 05/19/19 00:36 Globulin 3.6 g/dL (2.5-4.5) 05/19/19 00:36 Albumin/Globulin Ratio 0.9 Ratio (1.1-2.1) L 05/19/19 00:36 Specimen Type Catherized urine 05/19/19 06:04 Urine Color Yellow (YELLOW) 05/19/19 06:04 Urine Appearance Slightly hazy (CLEAR) 05/19/19 06:04 Urine pH 5.0 (5.0 - 8.0) 05/19/19 06:04 Ur Specific [place] 1.020 (1.000-1.030) 05/19/19 06:04 Urine Protein 1+ (NEGATIVE) 05/19/19 06:04 Urine Glucose (UA) 4+ (NEGATIVE) 05/19/19 06:04 Urine Ketones 1+ (NEGATIVE) 05/19/19 06:04 Urine Occult Blood Negative (NEGATIVE) 05/19/19 06:04 Urine Nitrite Negative (NEGATIVE) 05/19/19 06:04 Urine Bilirubin Negative (NEGATIVE) 05/19/19 06:04 Urine Urobilinogen Normal (NORMAL) 05/19/19 06:04 Ur Leukocyte Esterase Negative (NEGATIVE) 05/19/19 06:04 Urine RBC None seen /HPF (0-3) 05/19/19 06:04 Urine WBC 0-2 /HPF (0-5) 05/19/19 06:04 Ur Squamous Epith Cells Moderate /HPF (NEGATIVE) 05/19/19 06:04 Urine Bacteria Trace /HPF (NEGATIVE) 05/19/19 06:04 Ur Culture Indicated? No/not indicated 05/19/19 06:04 Urine Opiates Screen Negative (NEG=<300) 05/19/19 06:04 Urine Methadone Screen Negative (NEG=<300) 05/19/19 06:04 Ur Barbiturates Screen Positive (NEG=<200) A 05/19/19 06:04 Ur Phencyclidine Scrn Negative (NEG=<25) 05/19/19 06:04 Ur Amphetamines Screen Positive (NEG=<1000) A 05/19/19 06:04 U Benzodiazepines Scrn Negative (NEG=<200) 05/19/19 06:04 Urine Cocaine Screen Negative (NEG=<300) 05/19/19 06:04 U Marijuana (THC) Screen Negative (NEG=<50) 05/19/19 06:04 Acetone, Semi-Quant Negative (NEGATIVE) 05/19/19 00:36 XRAY XRAY Interpreted by: Radiologist (REPORT NOTED AND DISCUSSED WITH PATIENT.) and Self EKG Rate: 90 [place]: Normal Rhythm: NSR (LOW VOLTAGE.) Opioid Opioid Risk Tool Age (Chris box if 16-45): Yes Total: 1 Total Score Risk Category: Low Risk Copyright: [facility] predicting aberrant behaviors Diagnosis Discharge Problem: Acute hyperglycemia, Acute dyspnea, Multiple episodes of hypoglycemia, Substance abuse Chest pain Qualifiers: Chest pain type: intercostal pain Qualified Code(s): R07.82 - Intercostal pain Acute drug overdose Qualifiers: Encounter type: initial encounter Injury intent: accidental or unintentional Qualified Code(s): T50.901A - Poisoning by unspecified drugs, medicaments and biological substances, accidental (unintentional), initial encounter Instructions Instructions: Hypotension, [id number] Nonspecific Chest Pain Hyperglycemia, Wnkh-nn-Zeak Steps to Quit Smoking, Paqk-oy-Vqpz Type 1 Diabetes Mellitus, Diagnosis, Adult, [id number] Preventing Hypoglycemia Hypoglycemia, Tfsx-ik-Cged Diabetes Mellitus and Nutrition Forms: Patient Portal
--- NOTE | 2019-05-19 01:54 | RAD ---
Chest AP portableIndication: Chest painCOMPARISONOctober 2016FINDINGSThere is no pneumothorax, effusion or consolidation. Heart size is normal. Monitor leads obscure minimal detailIMPRESSIONNo acute chest process.Electronically signed by: TAVO TYSON (May 19, 2019 01:53:18)
[2019-05-19] MEDS ORDERED: NS 1000 ML 1,000 ML ONE ×4 (01:58→13:03)
[2019-05-19] MEDS ORDERED: D50W ABBOJECT SYR ONE ×2 (04:32→06:57)
[2019-05-19] MEDS ORDERED: D50W ABBOJECT SYR IV ONE ×2 (04:33→06:57)
[2019-05-19 06:33] LABS: BILIRUBIN,URINE NEGATIVE (NEGATIVE); BLOOD/HEMOGLOBIN,URINE NEGATIVE (NEGATIVE); GLUCOSE, URINE 4+ (NEGATIVE); KETONES,URINE 1+ (NEGATIVE); LEUKOCYTE ESTERASE ,URINE NEGATIVE (NEGATIVE); NITRITES,URINE NEGATIVE (NEGATIVE); PROTEIN,URINE 1+ (NEGATIVE); UROBILINOGEN,URINE NORMAL (NORMAL)
[2019-05-19 06:57] LABS: APPEARANCE,URINE SLIGHTLY HAZY (CLEAR); COLOR,URINE YELLOW (YELLOW)
[2019-05-19 06:58] LABS: BACTERIA,URINE TRACE /HPF (NEGATIVE); RBC,URINE NONE SEEN /HPF (0-3); SQUAMOUS EPITHELIAL CELL,UR MODERATE /HPF (NEGATIVE)
[2019-05-19 08:49] LABS: BASOPHILS # (AUTO) 0.1 X10^3/uL (0.0-0.1); BASOPHILS % (AUTO) 0.9 % (0.2-1.0); EOSINOPHILS # (AUTO) 0.3 x10^3/uL (0.0-0.2); EOSINOPHILS % (AUTO) 3.9 % (0.9-2.9); HEMATOCRIT 37.1 % (36.0-47.0); HEMOGLOBIN 12.9 g/dL (12.0-16.0); LYMPHOCYTES # (AUTO) 3.6 X10^3/uL (1.3-2.9); LYMPHOCYTES % (AUTO) 42.8 % (21.0-51.0); MEAN CORPUSCULAR HEMOGLOBIN 31.5 pg (27.0-34.0); MEAN CORPUSCULAR HGB CONC 34.8 g/dL (33.0-35.0); MEAN CORPUSCULAR VOLUME 90.5 fL (80.0-100.0); MEAN PLATELET VOLUME 8.1 fL (7.4-11.0); MONOCYTES # (AUTO) 0.7 x10^3/uL (0.3-0.8); MONOCYTES % (AUTO) 8.7 % (0.0-13.0); NEUTROPHILS # (AUTO) 3.6 x10^3/uL (2.2-4.8); NEUTROPHILS % (AUTO) 43.7 % (42.0-75.0); PLATELET COUNT 215 X10^3/uL (150.0-450.0); RED CELL DISTRIBUTION WIDTH 12.9 % (11.6-16.5); WHITE BLOOD COUNT 8.3 X10^3/uL (3.6-10.0)
[2019-05-19 09:04] LABS: BLOOD UREA NITROGEN 26 mg/dL (7-18); CALCIUM 8.1 mg/dL (8.5-10.1); CHLORIDE 103 mmol/L (98-107); COR NA(FOR HYPERGLY) 138 mmol/L (136-145); CREATININE 0.98 mg/dL (0.55-1.02); SODIUM 136 mmol/L (136-145); TROPONIN I < 0.02 ng/mL (0-1.5); eGFR NON BLACK RACES > 60 (>60)
[2019-05-19 09:24] LABS: ALANINE AMINOTRANSFERASE 15 Units/L (12-78); ALBUMIN 2.6 g/dL (3.4-5.0); ALKALINE PHOSPHATASE 78 Units/L (46-116); ASPARTATE AMINO TRANSFERASE 17 Units/L (15-37); CKMB % 2.1 % (<4); COR CA(FOR HYPOALB) 9.2 mg/dL (8.5-10.1); CREATINE KINASE 169 Units/L (26-192); CREATINE KINASE MB 3.5 ng/mL (0-4.0); TOTAL PROTEIN 5.6 g/dL (6.4-8.2)
[2019-05-19] MEDS: CYMBALTA PO SCH (10:04)
[2019-05-19] MEDS: NORTRIPTYLINE 25 MG PO SCH (10:06)
[2019-05-19 12:07] VITALS: BMI 33.1
[2019-05-19] MEDS: NS 1000 ML 1,000 ML IV SCH ×2 (13:03→21:10)
--- NOTE | 2019-05-19 14:25 | DR.H&P ---
H&P History & Physical for Day of: H&P Date: 05/19/19 Chief Complaint Chief Complaint: chest pain, palpitations Allergies Allergies Allergy/AdvReac Type Severity Reaction Status Date / Time No Known Drug Allergies Allergy Verified 01/03/17 15:43 History of Present Illness History of Present Illness: Ms. Vazquez is a 39y/o female with a PMH of DM, HTN, HLD presented with sharp chest pain that started as she was getting ready to go to bed. She describes the pain as substernal sharp with some radiation to the left arm associated with SOB. No prev cardiac hx. No triggers including stress and anxiety. She states the pain was present while she was in the ED but eased off. She has a hx of uncontrolled DM, on lantus and SSI. She reports FS between 200-500s at home, last A1C 9.4%. She denies being sick, no fever or chills, no N/V/D or abdominal pain. Denies hx of smoking, ETOH or recreational drug use. ED work-up - Troponin (-), CXR (-) - BP initially elevated but then became hypotensive requiring fluids - FS: Initially 333, 451 and then dropped to 48 requiring multiple boluses of D50 - UDS: positive for barbiturates and amphetamines. Past Medical History Past Medical History: Anxiety, Depression, Diabetes, Dyslipidemia and Hypertension Additional Medical History: DRUG ABUSE ON SUBOXONE NAUSEA Past Surgical History Surgical History: Unknown Family History Family Medical History: Diabetes Mellitus and Hypertension Social History Does patient currently use any type of tobacco product: No Have you used tobacco products in the last 12 months: Yes Type of Tobacco Use: Cigarettes Does any household member use tobacco: Yes Alcohol Use: None Drug Use: Prescription Drugs Prescription drug monitoring program results: PDMP was not reviewed Medications Home Medications: No Known Drug Allergies Allergy (Verified 01/03/17 15:43) CONTINUE taking the following medications atorvastatin 10 mg PO HS 05/19/19 [History] duloxetine 60 mg PO DAILY 05/19/19 [History] gabapentin 800 mg PO TID 05/19/19 [History] insulin glargine [Basaglar KwikPen U-100 Insulin] 50 unit SUBCUT DAILY 05/19/19 [History] insulin lispro [Admelog U-100 Insulin lispro] 1 unit SUBCUT ACHS 05/19/19 [History] metoprolol succinate 100 mg PO DAILY 05/19/19 [History] nortriptyline 25 mg PO DAILY 05/19/19 [History] Labs Result Diagrams: 05/19/19 08:34 05/19/19 08:34 Labs: Laboratory WBC 8.3 X10^3/uL (3.6-10.0) 05/19/19 08:34 RBC 4.10 X10^6/uL (3.5-5.4) 05/19/19 08:34 Hgb 12.9 g/dL (12.0-16.0) 05/19/19 08:34 Hct 37.1 % (36.0-47.0) 05/19/19 08:34 MCV 90.5 fL (80.0-100.0) 05/19/19 08:34 MCH 31.5 pg (27.0-34.0) 05/19/19 08:34 MCHC 34.8 g/dL (33.0-35.0) 05/19/19 08:34 RDW 12.9 % (11.6-16.5) 05/19/19 08:34 Plt Count 215 X10^3/uL (150.0-450.0) 05/19/19 08:34 MPV 8.1 fL (7.4-11.0) 05/19/19 08:34 Neut % (Auto) 43.7 % (42.0-75.0) 05/19/19 08:34 Lymph % (Auto) 42.8 % (21.0-51.0) 05/19/19 08:34 [place] % (Auto) 8.7 % (0.0-13.0) 05/19/19 08:34 Eos % (Auto) 3.9 % (0.9-2.9) H 05/19/19 08:34 Baso % (Auto) 0.9 % (0.2-1.0) 05/19/19 08:34 Neut # (Auto) 3.6 x10^3/uL (2.2-4.8) 05/19/19 08:34 Lymph # (Auto) 3.6 X10^3/uL (1.3-2.9) H 05/19/19 08:34 [place] # (Auto) 0.7 x10^3/uL (0.3-0.8) 05/19/19 08:34 Eos # (Auto) 0.3 x10^3/uL (0.0-0.2) H 05/19/19 08:34 Baso # (Auto) 0.1 X10^3/uL (0.0-0.1) 05/19/19 08:34 Absolute Nucleated RBC 0.1 /100WBC 05/19/19 08:34 Sodium 136 mmol/L (136-145) 05/19/19 08:34 Corrected Sodium 138 mmol/L (136-145) 05/19/19 08:34 Potassium 3.9 mmol/L (3.5-5.1) 05/19/19 08:34 Chloride 103 mmol/L (98-107) 05/19/19 08:34 Carbon Dioxide 28.0 mmol/L (21-32) 05/19/19 08:34 BUN 26 mg/dL (7-18) H 05/19/19 08:34 Creatinine 0.98 mg/dL (0.55-1.02) 05/19/19 08:34 Est GFR (MDRD) Af Amer > 60 (>60) 05/19/19 08:34 Est GFR (MDRD) Non-Af > 60 (>60) 05/19/19 08:34 Glucose 196 mg/dL (65-99) H 05/19/19 08:34 POC Glucose (mg/dL) 153 mg/dL (65-99) H 05/19/19 11:48 Calcium 8.1 mg/dL (8.5-10.1) L 05/19/19 08:34 Corrected Calcium 9.2 mg/dL (8.5-10.1) 05/19/19 08:34 Total Bilirubin 0.20 mg/dL (0.2-1.0) 05/19/19 08:34 AST 17 Units/L (15-37) 05/19/19 08:34 ALT 15 Units/L (12-78) 05/19/19 08:34 Alkaline Phosphatase 78 Units/L (46-116) 05/19/19 08:34 Creatine Kinase 169 Units/L (26-192) 05/19/19 08:34 CK-MB (CK-2) 3.5 ng/mL (0-4.0) 05/19/19 08:34 CK/CKMB % Calc 2.1 % (<4) 05/19/19 08:34 Troponin I < 0.02 ng/mL (0-1.5) 05/19/19 08:34 Total Protein 5.6 g/dL (6.4-8.2) L 05/19/19 08:34 Albumin 2.6 g/dL (3.4-5.0) L 05/19/19 08:34 Globulin 3.0 g/dL (2.5-4.5) 05/19/19 08:34 Albumin/Globulin Ratio 0.9 Ratio (1.1-2.1) L 05/19/19 08:34 Specimen Type Catherized urine 05/19/19 06:04 Urine Color Yellow (YELLOW) 05/19/19 06:04 Urine Appearance Slightly hazy (CLEAR) 05/19/19 06:04 Urine pH 5.0 (5.0 - 8.0) 05/19/19 06:04 Ur Specific [place] 1.020 (1.000-1.030) 05/19/19 06:04 Urine Protein 1+ (NEGATIVE) 05/19/19 06:04 Urine Glucose (UA) 4+ (NEGATIVE) 05/19/19 06:04 Urine Ketones 1+ (NEGATIVE) 05/19/19 06:04 Urine Occult Blood Negative (NEGATIVE) 05/19/19 06:04 Urine Nitrite Negative (NEGATIVE) 05/19/19 06:04 Urine Bilirubin Negative (NEGATIVE) 05/19/19 06:04 Urine Urobilinogen Normal (NORMAL) 05/19/19 06:04 Ur Leukocyte Esterase Negative (NEGATIVE) 05/19/19 06:04 Urine RBC None seen /HPF (0-3) 05/19/19 06:04 Urine WBC 0-2 /HPF (0-5) 05/19/19 06:04 Ur Squamous Epith Cells Moderate /HPF (NEGATIVE) 05/19/19 06:04 Urine Bacteria Trace /HPF (NEGATIVE) 05/19/19 06:04 Ur Culture Indicated? No/not indicated 05/19/19 06:04 Urine Opiates Screen Negative (NEG=<300) 05/19/19 06:04 Urine Methadone Screen Negative (NEG=<300) 05/19/19 06:04 Ur Barbiturates Screen Positive (NEG=<200) A 05/19/19 06:04 Ur Phencyclidine Scrn Negative (NEG=<25) 05/19/19 06:04 Ur Amphetamines Screen Positive (NEG=<1000) A 05/19/19 06:04 U Benzodiazepines Scrn Negative (NEG=<200) 05/19/19 06:04 Urine Cocaine Screen Negative (NEG=<300) 05/19/19 06:04 U Marijuana (THC) Screen Negative (NEG=<50) 05/19/19 06:04 Acetone, Semi-Quant Negative (NEGATIVE) 05/19/19 00:36 Review of Systems Constitutional: No Symptoms Reported Eyes: No Symptoms Reported Respiratory: Shortness of Breath Cardiovascular: Chest Pain and Palpitations Gastrointestinal: No Symptoms Reported Genitourinary: No Symptoms Reported Musculoskeletal: No Symptoms Reported Skin: No Symptoms Reported Neurological: No Symptoms Reported Physical Exam Vital Signs: Temperature 97.8 F Pulse Rate 71 Respiratory Rate 19 Blood Pressure [Right Arm] 186/106 Blood Pressure [Left Arm] 169/104 Blood Pressure 90/50 O2 Sat by Pulse Oximetry 97 Oriented: Normal Eyes: Normal Respiratory: Clear Throughout Cardiovascular: Tachycardia Auscultation: Bowel Sounds: Normal Palpation: Normal Tenderness: Normal Skin: Normal Musculoskeletal: Normal Psychiatric: Normal Mood Description: Calm Affect: Normal Speech Pattern: Clear and Appropriate Assessment/Plan (1) Hypotensive episode: Status: Acute Plan: Pt initially hypertensive but then became hypotensive in the ED. SBP in 70-90s. Continue IV hydration Hold anti-hypertensives (2) Hypomagnesemia: Status: Acute Plan: Mag 1.6 replace as per protocol (3) Hypoglycemia: Status: Acute Plan: FS initially hyperglycemic but then hypoglycemic, resolved with D50 Hold scheduled insulin for now, FS before meals, SSI (4) Chest pain: Qualifiers: Chest pain type: intercostal pain Qualified Code(s): R07.82 - Intercostal pain Status: Acute Plan: Troponin x 2 (-) Continue telemetry (5) Illicit drug use: Status: Acute Plan: UDS positive for amphetamines and barbiturates, patient denies use. (6) Diabetes: Qualifiers: Diabetes mellitus complication status: without complication Diabetes mellitus fpc insulin use: with fpc use Diabetes mellitus type: other specified (including BJ) Qualified Code(s): E13.9 - Other specified diabetes mellitus without complications; Z79.4 - custodial (current) use of insulin Status: Acute Plan: hx of uncontrolled diabetes, A!1C > 9, continue SSI for now Diabetic diet (7) Anxiety: Status: Acute Review H&P Reviewed: Yes Patient was examined?: Yes
[2019-05-19 14:28] LABS: CKMB % 2.3 % (<4); CREATINE KINASE 169 Units/L (26-192); CREATINE KINASE MB 3.9 ng/mL (0-4.0); MAGNESIUM 1.6 mg/dL (1.7-2.9); TROPONIN I < 0.02 ng/mL (0-1.5)
[2019-05-19] MEDS ORDERED: KLOR-CON PO PRN (14:39)
[2019-05-19] MEDS ORDERED: MICRO K EXTEN CAP 10 MEQ PO PRN (14:39)
[2019-05-19] MEDS ORDERED: K-DUR TAB 20 MEQ PO PRN (14:39)
[2019-05-19] MEDS ORDERED: K-RIDER 10 MEQ/NS 100 ML 10 MEQ/100 ML BAG IV PRN (14:39)
[2019-05-19] MEDS ORDERED: POTASSIUM CHL 40 MEQ/NS 0.45% 500 ML IV PRN (14:39)
[2019-05-19] MEDS ORDERED: POTASSIUM CHLORIDE LIQ 20 MEQ UDC PO PRN (14:39)
[2019-05-19] MEDS ORDERED: POTASSIUM CHL 60 MEQ/NS 0.45% 500 ML IV PRN (14:39)
[2019-05-19] MEDS: MAGNESIUM SULFATE 1 GRAM/100 mL PREMIX 1 GM/100 ML BAG IV PRN ×2 (14:47→15:58)
[2019-05-19] MEDS: HumuLIN R SUBCUT PRN ×2 (17:14→20:39)
[2019-05-19] MEDS ORDERED: SNACK - Diabetic Appropriate PO SCH (20:00)
[2019-05-19] MEDS ORDERED: LIPITOR TAB 10 MG PO SCH (21:00)
[2019-05-20] MEDS: NS 1000 ML 1,000 ML IV SCH (05:09)
[2019-05-20 05:24] LABS: BASOPHILS % (AUTO) 0.7 % (0.2-1.0); EOSINOPHILS # (AUTO) 0.3 x10^3/uL (0.0-0.2); EOSINOPHILS % (AUTO) 3.9 % (0.9-2.9); HEMATOCRIT 35.1 % (36.0-47.0); HEMOGLOBIN 12.2 g/dL (12.0-16.0); LYMPHOCYTES # (AUTO) 3.2 X10^3/uL (1.3-2.9); LYMPHOCYTES % (AUTO) 45.6 % (21.0-51.0); MEAN CORPUSCULAR HEMOGLOBIN 32.1 pg (27.0-34.0); MEAN CORPUSCULAR HGB CONC 34.7 g/dL (33.0-35.0); MEAN CORPUSCULAR VOLUME 92.6 fL (80.0-100.0); MEAN PLATELET VOLUME 8.8 fL (7.4-11.0); MONOCYTES # (AUTO) 0.6 x10^3/uL (0.3-0.8); MONOCYTES % (AUTO) 8.5 % (0.0-13.0); NEUTROPHILS # (AUTO) 2.9 x10^3/uL (2.2-4.8); NEUTROPHILS % (AUTO) 41.3 % (42.0-75.0); PLATELET COUNT 209 X10^3/uL (150.0-450.0); RED BLOOD COUNT 3.79 X10^6/uL (3.5-5.4); RED CELL DISTRIBUTION WIDTH 12.6 % (11.6-16.5); WHITE BLOOD COUNT 6.9 X10^3/uL (3.6-10.0)
[2019-05-20 05:40] LABS: ALANINE AMINOTRANSFERASE 16 Units/L (12-78); ALBUMIN 2.2 g/dL (3.4-5.0); ALKALINE PHOSPHATASE 64 Units/L (46-116); ASPARTATE AMINO TRANSFERASE 16 Units/L (15-37); BLOOD UREA NITROGEN 15 mg/dL (7-18); CALCIUM 7.2 mg/dL (8.5-10.1); CARBON DIOXIDE 28.2 mmol/L (21-32); CHLORIDE 108 mmol/L (98-107); COR CA(FOR HYPOALB) 8.6 mg/dL (8.5-10.1); CREATININE 0.83 mg/dL (0.55-1.02); MAGNESIUM 1.9 mg/dL (1.7-2.9); SODIUM 141 mmol/L (136-145); TOTAL PROTEIN 5.1 g/dL (6.4-8.2); eGFR NON BLACK RACES > 60 (>60)
[2019-05-20] MEDS: CYMBALTA PO SCH (09:30)
[2019-05-20] MEDS: NORTRIPTYLINE 25 MG PO SCH (09:30)
[2019-05-20] MEDS: HumuLIN R SUBCUT PRN (12:12)
--- NOTE | 2019-05-20 12:45 | W.DIS.FURT ---
Summary of Discharge Admission Diagnosis Patient Problems (Updated 05/19/19 @ 15:15 by Rea Reyna) Anxiety (Acute) F41.9 Diabetes (Acute) E11.9 Hypoglycemia (Acute) E16.2 Hypomagnesemia (Acute) E83.42 Hypotensive episode (Acute) I95.9 Acute hyperglycemia (Acute) R73.9 Chest pain (Acute) R07.9 Acute dyspnea (Acute) R06.00 Multiple episodes of hypoglycemia (Acute) E16.2 Acute drug overdose (Acute) T50.901A Substance abuse (Acute) F19.10 Vital Signs: Vital Signs (72 hours) 05/19/19 00:18 05/19/19 00:24 05/19/19 00:30 Temperature 98.4 F Pulse Rate 91 H 89 85 Respiratory Rate 25 H 36 H 49 H Blood Pressure 114/77 116/83 O2 Sat by Pulse Oximetry 100 99 100 05/19/19 00:45 05/19/19 00:46 05/19/19 01:00 Temperature Pulse Rate 81 80 80 Respiratory Rate 20 18 26 H Blood Pressure 97/56 O2 Sat by Pulse Oximetry 96 100 99 05/19/19 01:01 05/19/19 01:15 05/19/19 01:30 Temperature Pulse Rate 82 72 78 Respiratory Rate 37 H 19 29 H Blood Pressure 100/76 92/71 91/70 O2 Sat by Pulse Oximetry 99 99 100 05/19/19 01:45 05/19/19 02:01 05/19/19 02:31 Temperature Pulse Rate 72 75 74 Respiratory Rate 28 H 53 H 49 H Blood Pressure 100/78 108/59 95/56 O2 Sat by Pulse Oximetry 100 05/19/19 02:46 05/19/19 03:01 05/19/19 03:15 Temperature Pulse Rate 77 79 75 Respiratory Rate 18 34 H 17 Blood Pressure 117/68 82/53 86/52 O2 Sat by Pulse Oximetry 05/19/19 03:30 05/19/19 03:45 05/19/19 04:00 Temperature Pulse Rate 77 76 75 Respiratory Rate 15 15 13 Blood Pressure 88/53 88/51 90/53 O2 Sat by Pulse Oximetry 05/19/19 04:15 05/19/19 04:28 05/19/19 04:30 Temperature Pulse Rate 74 75 75 Respiratory Rate 14 14 13 Blood Pressure 83/50 90/51 O2 Sat by Pulse Oximetry 05/19/19 04:46 05/19/19 05:00 05/19/19 05:15 Temperature Pulse Rate 74 72 69 Respiratory Rate 15 14 12 Blood Pressure 100/57 96/55 95/60 O2 Sat by Pulse Oximetry 94 L 05/19/19 05:30 05/19/19 05:41 05/19/19 05:45 Temperature Pulse Rate 69 70 70 Respiratory Rate 13 12 13 Blood Pressure 93/59 93/57 O2 Sat by Pulse Oximetry 05/19/19 06:00 05/19/19 06:03 05/19/19 06:15 Temperature Pulse Rate 70 76 65 Respiratory Rate 20 25 H 12 Blood Pressure 93/66 99/51 O2 Sat by Pulse Oximetry 05/19/19 06:17 05/19/19 06:29 05/19/19 06:30 Temperature Pulse Rate 64 66 66 Respiratory Rate 12 12 11 L Blood Pressure 102/50 O2 Sat by Pulse Oximetry 05/19/19 06:45 05/19/19 06:48 05/19/19 06:53 Temperature Pulse Rate 68 69 83 Respiratory Rate 12 12 21 Blood Pressure 91/51 92/55 O2 Sat by Pulse Oximetry 05/19/19 06:58 05/19/19 07:23 05/19/19 07:35 Temperature Pulse Rate 80 76 68 Respiratory Rate 28 H 24 10 L Blood Pressure 90/64 O2 Sat by Pulse Oximetry 98 99 05/19/19 07:40 05/19/19 08:00 05/19/19 08:12 Temperature Pulse Rate 67 70 73 Respiratory Rate 11 L 11 L Blood Pressure 86/53 86/54 87/50 O2 Sat by Pulse Oximetry 99 99 100 05/19/19 08:18 05/19/19 08:20 05/19/19 08:24 Temperature Pulse Rate 73 69 69 Respiratory Rate 19 15 Blood Pressure 86/48 88/49 O2 Sat by Pulse Oximetry 100 97 98 05/19/19 08:35 05/19/19 09:02 05/19/19 09:05 Temperature Pulse Rate 69 75 74 Respiratory Rate 29 H 28 H 18 Blood Pressure O2 Sat by Pulse Oximetry 100 05/19/19 09:08 05/19/19 09:14 05/19/19 09:32 Temperature 97.7 F Pulse Rate 74 Respiratory Rate Blood Pressure 100/59 94/54 O2 Sat by Pulse Oximetry 100 05/19/19 09:57 05/19/19 10:00 05/19/19 10:13 Temperature Pulse Rate 79 79 77 Respiratory Rate 53 H 44 H 44 H Blood Pressure 90/59 O2 Sat by Pulse Oximetry 96 95 98 05/19/19 11:00 05/19/19 12:00 05/19/19 12:41 Temperature 97.8 F Pulse Rate 72 75 78 Respiratory Rate 16 14 27 H Blood Pressure 90/54 88/52 89/55 O2 Sat by Pulse Oximetry 94 L 95 100 05/19/19 12:43 05/19/19 13:02 05/19/19 13:07 Temperature Pulse Rate 77 134 H 78 Respiratory Rate 26 H 30 H Blood Pressure 87/61 116/57 O2 Sat by Pulse Oximetry 100 95 96 05/19/19 14:00 05/19/19 14:01 05/19/19 15:00 Temperature Pulse Rate 72 71 73 Respiratory Rate 34 H 19 15 Blood Pressure 90/50 90/59 O2 Sat by Pulse Oximetry 93 L 97 95 05/19/19 15:04 05/19/19 16:00 05/19/19 17:00 Temperature 97.7 F Pulse Rate 74 74 82 Respiratory Rate 45 H 36 H 15 Blood Pressure 94/56 96/56 O2 Sat by Pulse Oximetry 99 96 91 L 05/19/19 18:00 05/19/19 19:00 05/19/19 20:00 Temperature 98.2 F Pulse Rate 71 79 71 Respiratory Rate 14 20 15 Blood Pressure 102/57 90/55 99/54 O2 Sat by Pulse Oximetry 94 L 93 L 94 L 05/19/19 21:00 05/19/19 22:00 05/19/19 23:00 Temperature 98.2 F Pulse Rate 73 69 71 Respiratory Rate 16 19 16 Blood Pressure 93/55 96/52 105/55 O2 Sat by Pulse Oximetry 94 L 94 L 96 05/20/19 00:00 05/20/19 01:00 05/20/19 02:00 Temperature 98.7 F Pulse Rate 67 69 71 Respiratory Rate 16 12 17 Blood Pressure 94/55 100/61 99/62 O2 Sat by Pulse Oximetry 95 93 L 96 05/20/19 03:00 05/20/19 04:00 05/20/19 05:00 Temperature 98.3 F Pulse Rate 77 76 79 Respiratory Rate 17 15 18 Blood Pressure 93/51 103/60 97/59 O2 Sat by Pulse Oximetry 95 96 94 L 05/20/19 06:00 05/20/19 07:00 05/20/19 08:00 Temperature 97.6 F Pulse Rate 76 80 78 Respiratory Rate 14 16 13 Blood Pressure 101/65 93/58 98/57 O2 Sat by Pulse Oximetry 95 92 L 93 L 05/20/19 09:02 05/20/19 09:15 05/20/19 10:00 Temperature Pulse Rate 85 78 73 Respiratory Rate 31 H 15 20 Blood Pressure 106/64 O2 Sat by Pulse Oximetry 96 96 97 05/20/19 10:21 05/20/19 11:00 05/20/19 12:00 Temperature 98.8 F Pulse Rate 75 81 86 Respiratory Rate 12 21 20 Blood Pressure 91/52 95/55 114/75 O2 Sat by Pulse Oximetry 94 L 94 L 95 05/20/19 12:30 Temperature Pulse Rate 73 Respiratory Rate 14 Blood Pressure O2 Sat by Pulse Oximetry 97 Labs: Laboratory Last Values WBC 6.9 X10^3/uL (3.6-10.0) 05/20/19 04:19 RBC 3.79 X10^6/uL (3.5-5.4) 05/20/19 04:19 Hgb 12.2 g/dL (12.0-16.0) 05/20/19 04:19 Hct 35.1 % (36.0-47.0) L 05/20/19 04:19 MCV 92.6 fL (80.0-100.0) 05/20/19 04:19 MCH 32.1 pg (27.0-34.0) 05/20/19 04:19 MCHC 34.7 g/dL (33.0-35.0) 05/20/19 04:19 RDW 12.6 % (11.6-16.5) 05/20/19 04:19 Plt Count 209 X10^3/uL (150.0-450.0) 05/20/19 04:19 MPV 8.8 fL (7.4-11.0) 05/20/19 04:19 Neut % (Auto) 41.3 % (42.0-75.0) L 05/20/19 04:19 Lymph % (Auto) 45.6 % (21.0-51.0) 05/20/19 04:19 Mineral % (Auto) 8.5 % (0.0-13.0) 05/20/19 04:19 Eos % (Auto) 3.9 % (0.9-2.9) H 05/20/19 04:19 Baso % (Auto) 0.7 % (0.2-1.0) 05/20/19 04:19 Neut # (Auto) 2.9 x10^3/uL (2.2-4.8) 05/20/19 04:19 Lymph # (Auto) 3.2 X10^3/uL (1.3-2.9) H 05/20/19 04:19 Mineral # (Auto) 0.6 x10^3/uL (0.3-0.8) 05/20/19 04:19 Eos # (Auto) 0.3 x10^3/uL (0.0-0.2) H 05/20/19 04:19 Baso # (Auto) 0.0 X10^3/uL (0.0-0.1) 05/20/19 04:19 Absolute Nucleated RBC 0.0 /100WBC 05/20/19 04:19 Sodium 141 mmol/L (136-145) 05/20/19 04:19 Corrected Sodium TNP 05/20/19 04:19 Potassium 4.0 mmol/L (3.5-5.1) 05/20/19 04:19 Chloride 108 mmol/L (98-107) H 05/20/19 04:19 Carbon Dioxide 28.2 mmol/L (21-32) 05/20/19 04:19 BUN 15 mg/dL (7-18) 05/20/19 04:19 Creatinine 0.83 mg/dL (0.55-1.02) 05/20/19 04:19 Est GFR (MDRD) Af Amer > 60 (>60) 05/20/19 04:19 Est GFR (MDRD) Non-Af > 60 (>60) 05/20/19 04:19 Glucose 59 mg/dL (65-99) L 05/20/19 04:19 POC Glucose (mg/dL) 210 mg/dL (65-99) H 05/20/19 11:41 Calcium 7.2 mg/dL (8.5-10.1) L 05/20/19 04:19 Corrected Calcium 8.6 mg/dL (8.5-10.1) 05/20/19 04:19 Magnesium 1.9 mg/dL (1.7-2.9) 05/20/19 04:19 Total Bilirubin 0.30 mg/dL (0.2-1.0) 05/20/19 04:19 AST 16 Units/L (15-37) 05/20/19 04:19 ALT 16 Units/L (12-78) 05/20/19 04:19 Alkaline Phosphatase 64 Units/L (46-116) 05/20/19 04:19 Creatine Kinase 169 Units/L (26-192) 05/19/19 13:44 CK-MB (CK-2) 3.9 ng/mL (0-4.0) 05/19/19 13:44 CK/CKMB % Calc 2.3 % (<4) 05/19/19 13:44 Troponin I < 0.02 ng/mL (0-1.5) 05/19/19 13:44 Total Protein 5.1 g/dL (6.4-8.2) L 05/20/19 04:19 Albumin 2.2 g/dL (3.4-5.0) L 05/20/19 04:19 Globulin 2.9 g/dL (2.5-4.5) 05/20/19 04:19 Albumin/Globulin Ratio 0.8 Ratio (1.1-2.1) L 05/20/19 04:19 Specimen Type Catherized urine 05/19/19 06:04 Urine Color Yellow (YELLOW) 05/19/19 06:04 Urine Appearance Slightly hazy (CLEAR) 05/19/19 06:04 Urine pH 5.0 (5.0 - 8.0) 05/19/19 06:04 Ur Specific [place] 1.020 (1.000-1.030) 05/19/19 06:04 Urine Protein 1+ (NEGATIVE) 05/19/19 06:04 Urine Glucose (UA) 4+ (NEGATIVE) 05/19/19 06:04 Urine Ketones 1+ (NEGATIVE) 05/19/19 06:04 Urine Occult Blood Negative (NEGATIVE) 05/19/19 06:04 Urine Nitrite Negative (NEGATIVE) 05/19/19 06:04 Urine Bilirubin Negative (NEGATIVE) 05/19/19 06:04 Urine Urobilinogen Normal (NORMAL) 05/19/19 06:04 Ur Leukocyte Esterase Negative (NEGATIVE) 05/19/19 06:04 Urine RBC None seen /HPF (0-3) 05/19/19 06:04 Urine WBC 0-2 /HPF (0-5) 05/19/19 06:04 Ur Squamous Epith Cells Moderate /HPF (NEGATIVE) 05/19/19 06:04 Urine Bacteria Trace /HPF (NEGATIVE) 05/19/19 06:04 Ur Culture Indicated? No/not indicated 05/19/19 06:04 Urine Opiates Screen Negative (NEG=<300) 05/19/19 06:04 Urine Methadone Screen Negative (NEG=<300) 05/19/19 06:04 Ur Barbiturates Screen Positive (NEG=<200) A 05/19/19 06:04 Ur Phencyclidine Scrn Negative (NEG=<25) 05/19/19 06:04 Ur Amphetamines Screen Positive (NEG=<1000) A 05/19/19 06:04 U Benzodiazepines Scrn Negative (NEG=<200) 05/19/19 06:04 Urine Cocaine Screen Negative (NEG=<300) 05/19/19 06:04 U Marijuana (THC) Screen Negative (NEG=<50) 05/19/19 06:04 Acetone, Semi-Quant Negative (NEGATIVE) 05/19/19 00:36 Reason For Visit: HYPOTENSION,HYPOGLYCEMIA,DRUG OVERDOSE/ACCIDENTAL Discharge Diagnosis All Active Problems (Updated 05/19/19 @ 15:15 by Rea Reyna) Anxiety (Acute) Diabetes (Acute) Hypoglycemia (Acute) Hypomagnesemia (Acute) Hypotensive episode (Acute) Nausea and vomiting (Acute) Abdominal pain (Acute) Hyperglycemia (Acute) Hypoglycemia due to insulin (Acute) Illicit drug use (Acute) Gastroenteritis (Acute) Acute hyperglycemia (Acute) Chest pain (Acute) Acute dyspnea (Acute) Multiple episodes of hypoglycemia (Acute) Acute drug overdose (Acute) Substance abuse (Acute) Plan of Treatment: Continue with present treatment and follow up plan. Pt is to keep follow up appointment as instructed and take medications as ordered. Discharge Medications Discharge Medications: No Known Drug Allergies Allergy (Verified 01/03/17 15:43) CONTINUE taking the following medications atorvastatin 10 mg PO HS 05/19/19 [History] duloxetine 60 mg PO DAILY 05/19/19 [History] gabapentin 800 mg PO TID 05/19/19 [History] insulin lispro [Admelog U-100 Insulin lispro] 1 unit SUBCUT ACHS 05/19/19 [History] nortriptyline 25 mg PO DAILY 05/19/19 [History]
[2019-05-20 14:12] VITALS: BP 110/65
== END 2019-05-20 14:00 | disposition home or self-care (01) ==
LOC: ER 00:11 → ICU 00:11
PROVIDERS: ADMIT Internal Medicine; ATTEND Internal Medicine
DX: R07.82 Intercostal pain; F41.8 Other specified anxiety disorders; I10 Essential (primary) hypertension; E83.42 Hypomagnesemia; E78.2 Mixed hyperlipidemia; T50.901A Poisoning by unspecified drugs, medicaments and biological substances, accidental (unintentional), initial encounter; Z79.4 Long term (current) use of insulin; E11.649 Type 2 diabetes mellitus with hypoglycemia without coma; F13.10 Sedative, hypnotic or anxiolytic abuse, uncomplicated; F15.10 Other stimulant abuse, uncomplicated; I95.89 Other hypotension; R06.02 Shortness of breath
CPT/HCPCS: 36415; 51701; 71010; 71045; 80053; 80307; 81001; 82009; 82550; 82553; 82947; 83735; 84484; 85025; 93005; 96365; 96367; 96372; 96374; 96375; 97161; 99284; A4216; A4222; G0378; J1815; J3475; J3490; J7030